=== PATIENT | male | born 1995 | race Caucasian/White ===

== ENCOUNTER → 2024-04-28 | Day surgery (SDC) | payer OTHER ==
[~2024-04-28] MED LIST: LIDOCAINE 2% 100MG/5ML SDV (FOR ANES.) As Ordered ONE; MIDAZOLAM INJ 2MG/2ML VIAL As Ordered ONE; UNRESOLVED CLARIFICATION ENTRY XX SCH; fentaNYL 100 MCG/2 ML INJECTION As Ordered ONE; propofoL 200 MG/20 ML VIAL As Ordered ONE
[2024-04-28 06:36] VITALS: BP 135/84; TEMP 97.3; O2SAT 96
== END | disposition home or self-care (01) ==
LOC: M SDC 06:17
PROVIDERS: ATTEND Orthopaedic Surgery
DX: M79.605 Pain in left leg (principal); M79.604 Pain in right leg
CPT/HCPCS: 20950; J2250; J3010

== ENCOUNTER 2025-07-02 09:36 | Emergency (ER) | payer OTHER ==
[~2025-07-02] VITALS: Ht 175.3 cm; Wt 86.1 kg
[2025-07-02] MEDS ORDERED: BACTDSTA (09:48)
[2025-07-02] MEDS ORDERED: CLOM50TA28 (09:48)
[2025-07-02] MEDS ORDERED: AMPH1CAP5 (09:48)
[2025-07-02 10:19] LABS: BASO # 0.1 10^3/uL (0.0-0.2); BASO % 0.5 % (0.0-1.0); EOS # 0.2 10^3/uL (0.0-0.5); EOS % 2.5 % (0.0-3.0); LYMPH # 1.4 10^3/uL (1.5-5.0); LYMPH % 14.9 % (24.0-44.0); MONO # 0.7 10^3/uL (0.0-0.8); MONO % 7.4 % (2.0-8.0); NEUTROPHILS # 7.2 10^3/uL (1.5-8.5); NEUTROPHILS % 74.5 % (36.0-66.0); PLATELET COUNT, AUTOMATED 298 10^3/uL (150-450)
[2025-07-02] MEDS: NS (Normal Saline) 0.9% 1,000 ML IV ONE (10:41)
[2025-07-02] MEDS: KETOROLAC 30 MG/ML 1 ML VIAL IV ONE (10:42)
[2025-07-02 10:46] LABS: C REACTIVE PROTEIN QUANTITATIV 1.54 MG/DL (<1.0)
[2025-07-02 10:47] LABS: ALT/SGPT 177 U/L (7.0-40); AST/SGOT 382 U/L (<34); CALCIUM LEVEL 9.0 MG/DL (8.5-10.1); CARBON DIOXIDE LEVEL 25 MMOL/L (20-31); CHLORIDE LEVEL 102 MMOL/L (98-107); CREATININE FOR GFR 1.20 MG/DL (0.70-1.30); GLOMERULAR FILTRATION RATE 82.9 (>60); POTASSIUM SERUM 4.4 MMOL/L (3.5-5.1); SODIUM LEVEL 140 MMOL/L (136-145)
[2025-07-02] MEDS: DALBAVANCIN 1,500 MG in D5W 250 ML IV ONE (12:35)
[2025-07-02] MEDS: NS 500 ML IV ONE (12:49)
[2025-07-02 13:45] VITALS: TEMP 99.9
[2025-07-02 14:00] VITALS: O2SAT 98
[2025-07-02 14:15] VITALS: BP 120/64
[2025-07-02 15:20] LABS: ERYTHROCYTE SEDIMENTATION RATE 31 mm/hr (0-15)
== END 2025-07-02 14:31 | disposition home or self-care (01) ==
LOC: M ED 09:36
DX: L03.115 Cellulitis of right lower limb (principal); F41.1 Generalized anxiety disorder; F90.9 Attention-deficit hyperactivity disorder, unspecified type; Z79.2 Long term (current) use of antibiotics; Z79.899 Other long term (current) drug therapy
CPT/HCPCS: 80053; 83605; 84145; 85025; 85652; 86140; 96361; 96374; 96375; 99284; J0875; J1885

== ENCOUNTER → 2025-07-14 | Outpatient (REF) | payer OTHER ==
[~2025-07-14] MED LIST changes: +AMPH1CAP5; +BACTDSTA; +CEPH500C; +CLOM50TA28; -LIDOCAINE 2% 100MG/5ML SDV (FOR ANES.) As Ordered ONE; -MIDAZOLAM INJ 2MG/2ML VIAL As Ordered ONE; -UNRESOLVED CLARIFICATION ENTRY XX SCH; -fentaNYL 100 MCG/2 ML INJECTION As Ordered ONE; -propofoL 200 MG/20 ML VIAL As Ordered ONE
[2025-07-14 21:41] LABS: APPEARANCE, URINE CLEAR (CLEAR); BACTERIA, URINE AUTO NEGATIVE (NEGATIVE); BILIRUBIN, URINE AUTO NEGATIVE (NEGATIVE); BLOOD, URINE BLOOD NEGATIVE (NEGATIVE); GLUCOSE, URINE (UA) AUTO NEGATIVE (NEGATIVE); KETONE, URINE AUTO NEGATIVE (NEGATIVE); LEUKOCYTE ESTERASE, URINE AUTO NEGATIVE (NEGATIVE); NITRITE, URINE AUTO NEGATIVE (NEGATIVE); PROTEIN, URINE AUTO NEGATIVE (NEGATIVE); RBC, URINE AUTO 0 /HPF (0-3); SPECIFIC GRAVITY URINE AUTO 1.008 (1.002-1.035); SQUAMOUS EPITHELIAL CELL UR AU 0 /HPF (0-6); UROBILINOGEN, URINE AUTO 0.2 mg/dL (0.0-2.0); WBC, URINE AUTO 0 /HPF (0-3)
== END ==
LOC: M LAB REF 21:20
PROVIDERS: ATTEND Physician Assistant Medical
DX: N39.0 Urinary tract infection, site not specified (principal)